=== PATIENT | male | born 1965 | race Caucasian/White ===

== ENCOUNTER 2024-05-18 08:04 | Day surgery (SDC) | payer MEDICARE, BC ==
[~2024-05-18] VITALS: Ht 177.8 cm; Wt 109.4 kg
[~2024-05-18 08:04] MED LIST: ALEV220T22 PO; ATOR1TAB21 PO; MIDAZOLAM INJ 2MG/2ML VIAL As Ordered ONE; PHENYLEPHRINE 10% OPHTH SOL 5ML OS PRN; TRAZ-257 PO; TRIA1CR80 TOP; fentaNYL 100 MCG/2 ML INJECTION As Ordered ONE
[2024-05-18] MEDS: TROPICAMIDE 1% OPHTH SOLN 15ML OS SCH (09:34)
[2024-05-18] MEDS: OFLOXACIN 0.3 % (OCUFLOX) OPTH SOL 5ML OS ONE (09:34)
[2024-05-18] MEDS: LIDOCAINE 3.5 % 1ML OPHTH TOPICAL GEL OU ONE (09:34)
[2024-05-18] MEDS: CYCLOPENTOLATE 1% OPHTH SOLN 2ML BTL OS SCH (09:34)
[2024-05-18] MEDS: PHENYLEPHRINE 2.5% OPHTH SOL 2ML OS SCH (09:34)
[2024-05-18] MEDS: LIDOCAINE 1% SDV 5ML VIAL As Ordered ONE (10:47)
[2024-05-18] MEDS: BSS IRRIG/VANCO(10MG)/TOBRA(5MG)/EPINEPH(1:1000-0.5CC)500ML BAG-ORONLY As Ordered ONE (10:47)
[2024-05-18] MEDS: CEFUROXIME 1MG/0.1ML INTRACAMERAL INJ As Ordered ONE (10:47)
[2024-05-18 11:00] VITALS: BP 163/88; TEMP 97; O2SAT 98
== END 2024-05-18 11:11 | disposition home or self-care (01) ==
LOC: M SDC 08:04
PROVIDERS: ATTEND Ophthalmology
DX: H25.9 Unspecified age-related cataract (principal); Z86.718 Personal history of other venous thrombosis and embolism; Z79.899 Other long term (current) drug therapy
CPT/HCPCS: 66984; 92015; J0697; J2250; J3010; V2632